=== PATIENT | male | born 1985 | race Two or more races ===

== ENCOUNTER 2020-07-03 09:47 | Outpatient (CLI) | payer OTHER | END 2020-07-03 10:07 | disposition home or self-care (01) | LOC: NUCLEAR 09:47 | PROVIDERS: ATTEND Internal Medicine Sports Medicine | DX: E05.90 Thyrotoxicosis, unspecified without thyrotoxic crisis or storm (principal); E04.9 Nontoxic goiter, unspecified; E04.1 Nontoxic single thyroid nodule | CPT/HCPCS: 78012; A9531 ==

== ENCOUNTER 2020-07-04 10:01 | Outpatient (CLI) | payer OTHER | END 2020-07-04 15:33 | disposition home or self-care (01) | LOC: NUCLEAR 10:01 | PROVIDERS: ATTEND Internal Medicine Sports Medicine | DX: E05.90 Thyrotoxicosis, unspecified without thyrotoxic crisis or storm (principal); E04.9 Nontoxic goiter, unspecified; E04.1 Nontoxic single thyroid nodule | CPT/HCPCS: 78013; A9512 ==